=== PATIENT | male | born 1930 | race Caucasian/White ===

== ENCOUNTER 2019-05-01 09:11 | Outpatient (CLI) | payer OTHER ==
[~2019-05-01] VITALS: Ht 177.8 cm; Wt 99.8 kg
[2019-05-01] MEDS ORDERED: albuterol 2.5 MG/3 ML nebule NEB PRN (09:50)
== END 2019-05-01 23:59 | disposition home or self-care (01) ==
LOC: RT 09:11
PROVIDERS: ATTEND Orthopaedic Surgery
DX: J98.4 Other disorders of lung (principal); R06.02 Shortness of breath
CPT/HCPCS: 71046; 94060; 94760